=== PATIENT | female | born 1970 | race Two or more races ===

== ENCOUNTER → 2018-04-10 | Emergency (ER) | payer OTHER ==
[~2018-04-10] VITALS: Ht 160 cm; Wt 82.6 kg
[~2018-04-10] MED LIST: AMOX1TAB12 PO; DICLOFENAC POTA50 MG PO; NORFLEX100MG PO; ZIAC 2.5-6.25 M1 TAB PO
== END | disposition left against medical advice (07) ==
LOC: ER 17:05
DX: Z53.20 Procedure and treatment not carried out because of patient's decision for unspecified reasons (principal)

== ENCOUNTER 2019-04-12 22:21 | Emergency (ER) | payer OTHER ==
[~2019-04-12] VITALS: Ht 160 cm; Wt 81.6 kg
[2019-04-12] MEDS ORDERED: LASIX20 MG (22:51)
[2019-04-13] MEDS ORDERED: ZIAC 5-6.25 MG1 EACH PO (03:37)
== END 2019-04-13 03:57 | disposition home or self-care (01) ==
LOC: ER 22:21
DX: I16.0 Hypertensive urgency (principal); I10 Essential (primary) hypertension